=== PATIENT | male | born 1955 | race Caucasian/White ===

== ENCOUNTER → 2017-09-09 | Outpatient (CLI) | payer OTHER ==
[~2017-09-09] MED LIST: NOHOMEMEDS
== END | disposition home or self-care (01) ==
LOC: NUC 09:59
DX: R06.02 Shortness of breath (principal)
CPT/HCPCS: 71020; 78582; A9540; A9567

== ENCOUNTER 2018-02-04 09:04 | Day surgery (SDC) | payer OTHER ==
[~2018-02-04] VITALS: Ht 179.1 cm; Wt 108.4 kg
[~2018-02-04 09:04] MED LIST changes: +MULTIVITAMIN1 EAC2 PO; +VERAPAMIL HCL120 MG PO
[2018-02-04] MEDS ORDERED: ASPIRIN325 MG PO (09:41)
== END 2018-02-04 15:20 | disposition home or self-care (01) ==
LOC: CATH 09:04
DX: I34.0 Nonrheumatic mitral (valve) insufficiency (principal); I49.3 Ventricular premature depolarization; R00.2 Palpitations; R07.9 Chest pain, unspecified; R06.02 Shortness of breath; F41.9 Anxiety disorder, unspecified; G47.9 Sleep disorder, unspecified; E66.09 Other obesity due to excess calories; Z68.34 Body mass index [BMI] 34.0-34.9, adult; Z82.49 Family history of ischemic heart disease and other diseases of the circulatory system
CPT/HCPCS: 93005; C1769; C1887; J1644; J2250; J7040